=== PATIENT | female | born 1975 | race Caucasian/White ===

== ENCOUNTER 2021-07-22 01:03 | Emergency (ER) | payer OTHER ==
[~2021-07-22] VITALS: Ht 162.6 cm; Wt 59.0 kg
--- NOTE | 2021-07-22 02:00 | NUR ---
Dr. Jacobson at bedside for MSE.
--- NOTE | 2021-07-22 02:20 | NUR ---
Xray at bedside.
[2021-07-22 02:43] VITALS: BP 126/84
--- NOTE | 2021-07-22 02:43 | NUR ---
Patient discharged to home in stable condition. Written and verbal after care instructions given. Patient verbalizes understanding of instructions. Stressed follow up or return to ER for worsening s/s. Patient out of ER with steady gait, no acute signs of distress, VSS, all belongings taken.
== END 2021-07-22 02:44 | disposition home or self-care (01) ==
LOC: ER 01:34
DX: S63.610A Unspecified sprain of right index finger, initial encounter (principal); X58.XXXA Exposure to other specified factors, initial encounter; Y93.K1 Activity, walking an animal; Y92.89 Other specified places as the place of occurrence of the external cause; F17.210 Nicotine dependence, cigarettes, uncomplicated
CPT/HCPCS: 73140; A4663

== ENCOUNTER 2024-08-05 22:40 | Emergency (ER) | payer OTHER ==
[~2024-08-05] VITALS: Ht 162.6 cm; Wt 61.2 kg
[2024-08-05] MEDS ORDERED: METOCLOPRAMIDE HCL 10 MG/2 ML VIAL ONE (23:21)
[2024-08-05] MEDS ORDERED: KETOROLAC TROMETHAMINE 15 MG INJ ONE (23:22)
[2024-08-05] MEDS: METOCLOPRAMIDE HCL 10 MG/2 ML VIAL IV ONE (23:24)
[2024-08-05] MEDS: KETOROLAC TROMETHAMINE 15 MG INJ IVP ONE (23:24)
[2024-08-05] MEDS: IV NS 1000 ML 1,000 ML IV ONE (23:24)
[2024-08-05 23:29] LABS: BASOPHILS # (AUTO) 0.1 K/UL (0.0-0.2); DIFFERENTIAL COMMENT 1; EOSINOPHILS # (AUTO) 0.2 K/uL (0.0-0.7); EOSINOPHILS % (AUTO) 1.8 % (0.0-7.0); HEMATOCRIT 36.6 % (31.2-41.9); HEMOGLOBIN 12.2 g/dL (10.9-14.3); LYMPHOCYTES # (AUTO) 1.6 K/uL (0.8-4.8); LYMPHOCYTES % (AUTO) 17.7 % (20.5-51.5); MEAN CORPUSCULAR HEMOGLOBIN 31.1 uug (24.7-32.8); MEAN CORPUSCULAR HGB CONC 33 g/dL (32.3-35.6); MEAN CORPUSCULAR VOLUME 93.7 fL (75.5-95.3); MONOCYTES # (AUTO) 1.3 K/uL (0.1-1.30); MONOCYTES % (AUTO) 14.5 % (0.0-11.0); PLATELET COUNT (AUTO) 354 K/uL (179-408); RED BLOOD CELL COUNT(AUTO) 3.91 MIL/uL (3.63-4.92); RED CELL DISTRIBUTION WIDTH 13.7 % (12.3-17.7); WHITE BLOOD COUNT (AUTO) 9.3 K/uL (3.8-11.8)
[2024-08-05 23:34] LABS: ERYTHROCYTE SEDIMENTATION RATE 55 MM/HR (0-20)
[2024-08-05 23:35] LABS: *BLOOD, URINE NEGATIVE (NEGATIVE); *CLARITY,URINE SLIGHTLY CLOUDY (CLEAR); *COLOR,URINE YELLOW (YELLOW); *KETONES,URINE NEGATIVE (NEGATIVE); *PROTEIN,URINE 2+ (NEGATIVE); *UROBILINOGEN,URINE 0.2 E.U./dl (NORMAL); LEUKOCYTE ESTERASE ,URINE NEGATIVE (NEGATIVE); NITRITE, URINE NEGATIVE (NEGATIVE); PH,URINE 5.5 (5.0-8.0); UGLUCOSE NEGATIVE (NEGATIVE)
[2024-08-05 23:37] LABS: *BILIRUBIN,URIN 1+ (NEGATIVE)
[2024-08-05 23:42] LABS: BACTERIA,URINE MODERATE /HPF (NONE SEEN); COARSE GRANULAR CASTS,URINE 0-3 /LPF; SQUAMOUS EPITHELIAL CELL,UR MODERATE /HPF (NONE SEEN)
[2024-08-05 23:46] LABS: ALBUMIN 3.1 g/dL (3.4-5.0); BILIRUBIN,TOTAL 0.4 mg/dL (0.2-1.0); CALCIUM 9.4 mg/dL (8.5-10.1); CREATININE 0.8 mg/dL (0.6-1.3); POTASSIUM 3.3 mmol/L (3.5-5.1); TOTAL PROTEIN, SERUM 7.4 g/dL (6.4-8.2)
[2024-08-06] MEDS ORDERED: POTASSIUM CHLORIDE 20 MEQ TAB.PRT.SR ONE (00:41)
[2024-08-06] MEDS: POTASSIUM CHLORIDE 20 MEQ TAB.PRT.SR PO ONE (00:44)
[2024-08-06 00:49] VITALS: BP 109/74; TEMP 97.9; O2SAT 99
== END 2024-08-06 00:50 | disposition home or self-care (01) ==
LOC: ER 22:47
DX: T67.5XXA Heat exhaustion, unspecified, initial encounter (principal); R51.9 Headache, unspecified; H53.8 Other visual disturbances; E87.1 Hypo-osmolality and hyponatremia; E87.6 Hypokalemia; E88.09 Other disorders of plasma-protein metabolism, not elsewhere classified; F12.90 Cannabis use, unspecified, uncomplicated; H16.133 Photokeratitis, bilateral; M79.10 Myalgia, unspecified site; Z88.7 Allergy status to serum and vaccine; X58.XXXA Exposure to other specified factors, initial encounter; Y93.89 Activity, other specified; Y92.89 Other specified places as the place of occurrence of the external cause; Y99.8 Other external cause status
CPT/HCPCS: 99285; 96374; 70450; 71045; 96361; 96375; 80053; 81001; 82550; 83615; 85025; 85651; 87086; 36415; J1885; J2765; J7040; A4606; A4663